=== PATIENT | female | born 1975 | race Caucasian/White ===

== ENCOUNTER 2021-11-11 10:46 | Observation (INO) ==
[2021-11-11] MEDS ORDERED: *HR* HYDROcodone/Acet 5/325 mg TABLET PO PRN (15:10)
[2021-11-11] MEDS: Gabapentin 300 MG CAPSULE PO SCH ×2 (15:54→20:54)
[2021-11-11] MEDS: *HR* OxyCODONE Immed Rel 5 MG TABLET PO PRN ×2 (15:58→22:53)
[2021-11-11 16:05] LABS: Basophils % 0.1 %; Hemoglobin 13.1 g/dL (11.5-15.4); Immature Granulocytes % 0.4 % (0-4); Lymphocytes # 1.3 K/mcL (0.6-4.6); Lymphocytes % 10.8 %; Mean Corpuscular HGB Conc 32.8 g/dL (31.6-35.5); Mean Corpuscular Hemoglobin 30.4 pg (28.0-33.3); Mean Corpuscular Volume 92.8 fL (83.0-100.0); Mean Platelet Volume 9.4 fL (9.4-12.4); Monocytes # 0.6 K/mcL (0.0-1.3); Monocytes % 5.1 %; Neutrophils # 9.9 K/mcL (1.6-8.9); Platelet Count 304 K/mcL (140-400); Red Blood Count 4.31 M/mcL (3.82-4.97); Red Cell Distribution Width 13.5 % (11.5-14.5); Segmented Neutrophils % 83.6 %; White Blood Count 11.9 K/mcL (4.3-11.1)
[2021-11-11 16:30] LABS: Alanine Aminotransferase 8 Units/L (7-52); Albumin 4.8 g/dL (3.5-5.7); Albumin/Globulin Ratio 1.8 (1.1-2.2); Alkaline Phosphatase 55 Units/L (34-104); Aspartate Amino Transferase 10 Units/L (13-39); BUN/Creatinine Ratio 10 (6-26); Bilirubin,Total 0.4 mg/dL (0.3-1.0); Blood Urea Nitrogen 7 mg/dL (6-20); Carbon Dioxide 24 mEq/L (23-29); Chloride 106 mEq/L (98-107); Globulin 2.6 g/dL (2.4-3.5); Glucose 153 mg/dL (70-105); Osmolality,Calculated 289 (280-300); Potassium 3.7 mEq/L (3.5-5.1); Sodium 139 mEq/L (136-145); Total Protein 7.4 g/dL (6.4-8.9); eGFR For African Americans > 60 (> 60); eGFR For Non-African Americans > 60 (> 60)
[2021-11-11 20:07] LABS: INR 1.1; Prothrombin Time 12.4 Seconds (9.4-12.1)
[2021-11-11] MEDS: Topiramate 25 MG TABLET PO SCH (20:54)
[2021-11-12] MEDS: *HR* OxyCODONE Immed Rel 5 MG TABLET PO PRN ×3 (03:37→19:45)
[2021-11-12] MEDS: Gabapentin 300 MG CAPSULE PO SCH (08:49)
[2021-11-12] MEDS: Topiramate 25 MG TABLET PO SCH (08:50)
[2021-11-12] MEDS ORDERED: Lidocaine -MPF 2% 5 ML VIAL ONE (09:30)
[2021-11-12] MEDS ORDERED: *HR* Succinylcholine 200 MG/10 ML VIAL IVP ONE (09:30)
[2021-11-12] MEDS ORDERED: Ondansetron 4 MG/2 ML VIAL ONE (09:30)
[2021-11-12] MEDS ORDERED: *HR* Propofol 200 MG/20 ML VIAL IVP ONE (09:34)
[2021-11-12] MEDS ORDERED: ceFAZolin 2,000 MG in 0.9 % Sodium Chloride 100 ML IVPB ONE (11:00)
[2021-11-12] MEDS ORDERED: CeFAZolin Syr 2,000MG/20 ML 2,000 MG/20 ML SYRINGE IVPB ONE (11:35)
[2021-11-12] MEDS ORDERED: Acetaminophen IV 1,000 MG/100 ML BAG IVPB ONE (11:36)
[2021-11-12] MEDS ORDERED: Famotidine 20 MG/2 ML VIAL IVP ONE (11:36)
[2021-11-12] MEDS ORDERED: Ipratropium/Albuterol Neb 3 ML IH ONE (11:36)
[2021-11-12] MEDS ORDERED: Ringers Solution, Lactated 1,000 ML IVC SCH ×2 (11:45→15:56)
[2021-11-12] MEDS ORDERED: *HR* Methadone 5 MG TABLET PO ONE (12:00)
[2021-11-12] MEDS ORDERED: Polymyxin B Sulfate 500,000 UNIT, Sodium Chloride IRRigation 1,000 ML IR ONE (12:00)
[2021-11-12] MEDS ORDERED: *HR* Remifentanil 1 MG VIAL IVP ONE (12:10)
[2021-11-12] MEDS ORDERED: Ondansetron 4 MG/2 ML VIAL IVP PRN ×2 (12:17→15:56)
[2021-11-12] MEDS ORDERED: *HR* FentaNYL (PF) 100 MCG/2 ML VIAL IVP PRN (12:17)
[2021-11-12] MEDS ORDERED: *HR* Midazolam HCl 2 MG/2 ML VIAL ONE (12:18)
[2021-11-12] MEDS ORDERED: Prochlorperazine 10 MG/2 ML VIAL IVP ONE (12:39)
[2021-11-12] MEDS ORDERED: Ketorolac 30 MG/ML VIAL IVP ONE (12:45)
[2021-11-12] MEDS ORDERED: *HR* HYDROMORPHONE 2 MG/ML VIAL ONE (14:28)
[2021-11-12] MEDS: *HR* HYDROmorphone PF 0.5 MG/0.5 ML SYRINGE IVP PRN ×2 (15:16→15:23)
[2021-11-12] MEDS ORDERED: Naloxone 0.4 MG/ML INJ IVP PRN (15:56)
[2021-11-12] MEDS ORDERED: Acetaminophen 325 MG TABLET PO PRN (15:56)
[2021-11-12] MEDS: CeFAZolin 2 GM/120 ML BAG IVPB SCH (19:53)
[2021-11-13] MEDS: *HR* OxyCODONE Immed Rel 5 MG TABLET PO PRN ×3 (00:38→10:23)
[2021-11-13] MEDS: CeFAZolin 2 GM/120 ML BAG IVPB SCH (03:49)
[2021-11-13] MEDS: *HR* HYDROcodone/Acet 5/325 mg TABLET PO PRN ×2 (03:54→13:33)
[2021-11-13] MEDS ORDERED: *HR* Methadone 10 MG TABLET PO ONE (06:30)
[2021-11-13 12:16] VITALS: BP 107/64; PULSE 62; TEMP 98; O2SAT 95
== END 2021-11-13 14:33 | disposition home or self-care (01) ==
LOC: 4WAOSI → SUATTDRO 14:48 → EDSTATUS 11-12 12:00
PROVIDERS: ADMIT Orthopaedic Surgery Orthopaedic Surgery of the Spine; ATTEND Student in an Organized Health Care Education/Training Program